=== PATIENT | male | born 1970 | race Caucasian/White ===

== ENCOUNTER 2021-06-09 15:26 | Emergency (ER) | payer OTHER ==
[~2021-06-09] VITALS: Ht 182.9 cm; Wt 78.5 kg
[2021-06-09 15:27] VITALS: BP 125/87
[2021-06-09] MEDS ORDERED: HYDROCODONE/ACETAMINOPHEN 10/325 MG TAB ONE (17:58)
[2021-06-09] MEDS ORDERED: HYDROCODONE/ACETAMINOPHEN 10/325 MG TAB PO ONE (18:00)
[2021-06-09] MEDS ORDERED: ACET1TAB25 PO (18:01)
[2021-06-09] MEDS ORDERED: IBUP-2070 PO (18:01)
== END 2021-06-09 18:15 | disposition home or self-care (01) ==
LOC: EDH 15:26
DX: S22.32XA Fracture of one rib, left side, initial encounter for closed fracture (principal); W01.0XXA Fall on same level from slipping, tripping and stumbling without subsequent striking against object, initial encounter; Y93.89 Activity, other specified; Y92.89 Other specified places as the place of occurrence of the external cause; Y99.8 Other external cause status
CPT/HCPCS: 71046

== ENCOUNTER 2024-10-03 10:21 | Emergency (ER) | payer BC ==
[~2024-10-03] VITALS: Ht 180.3 cm; Wt 95.3 kg
[~2024-10-03 10:21] MED LIST: ACET-2079 PO; IBUP-2070 PO
[2024-10-03 10:43] LABS: APPEARANCE,URINE CLEAR (CLEAR); BILIRUBIN,URINE NEGATIVE (NEGATIVE); COLOR,URINE LIGHT-YELLOW (YELLOW); GLUCOSE, URINE (UA) NEGATIVE (NEGATIVE); KETONES,URINE NEGATIVE (NEGATIVE); LEUKOCYTE ESTERASE ,URINE NEGATIVE Leu/uL (NEGATIVE); NITRATE,URINE NEGATIVE (NEGATIVE); OCCULT BLOOD,URINE NEGATIVE (NEGATIVE); PROTEIN,URINE NEGATIVE (NEGATIVE); UROBILINOGEN,URINE 0.2 mg/dL (0.2-1.0)
[2024-10-03 10:45] LABS: ADD UA MICROSCOPIC NO
[2024-10-03 10:49] LABS: AMPHET/METH SCREEN,URINE NEGATIVE (NEGATIVE); BARBITURATE SCREEN, URINE NEGATIVE (NEGATIVE); BENZODIAZEPINES SCREEN,URINE NEGATIVE (NEGATIVE); CANNABINOID SCREEN,URINE NEGATIVE (NEGATIVE); COCAINE SCREEN,URINE NEGATIVE (NEGATIVE); OPIATE SCREEN,URINE NEGATIVE (NEGATIVE); PHENCYCLIDINE SCREEN,URINE NEGATIVE (NEGATIVE)
[2024-10-03] MEDS: ASPIRIN 81MG CHEW TAB PO STA (10:54)
[2024-10-03] MEDS: NITROGLYCERIN 0.4 MG SL TAB SL PRN (10:55)
[2024-10-03 10:58] LABS: BASOPHILS # (AUTO) 0.06 K/uL (0.00-0.20); BASOPHILS % (AUTO) 1.5 % (0.0-5.0); EOSINOPHILS # (AUTO) 0.09 K/uL (0.00-0.70); EOSINOPHILS % (AUTO) 2.3 % (0.0-8.0); HEMATOCRIT 47.9 % (42-54); IMMATURE GRANULOCYTE ABSOLUTE 0.03 K/uL (0-1); LYMPHOCYTES # (AUTO) 1.6 K/uL (1.0-4.8); LYMPHOCYTES % (AUTO) 41.1 % (21.0-51.0); MEAN CORPUSCULAR HEMOGLOBIN 32.6 pg (27.0-33.0); MEAN CORPUSCULAR HGB CONC 35.7 g/dL (32.0-36.0); MEAN CORPUSCULAR VOLUME 91.4 fL (79-99); MONOCYTES # (AUTO) 0.6 K/uL (0.1-1.0); MONOCYTES % (AUTO) 14.7 % (3.0-13.0); NEUTROPHILS # (AUTO) 1.5 K/uL (1.8-7.7); NEUTROPHILS % (AUTO) 39.6 % (40.0-77.0); PLATELET COUNT (AUTO) 156 K/uL (130-400); RED BLOOD CELL COUNT(AUTO) 5.24 MIL/uL (4.50-6.20); RED CELL DISTRIBUTION WIDTH 12.2 % (11.0-15.5); WHITE BLOOD COUNT (AUTO) 3.9 K/uL (4.8-10.8)
--- NOTE | 2024-10-03 11:00 | EKG ---
[facility] Test Date: 2024-10-03 Test Time: 10:09:55 Pat Name: NOBLE HERNANDEZ Department: ED Room: Gender: M Assistant Corporate Secretary: danitza elias : 1970 Requested By: EDNA MERLOS Order Number: [id number] Reading MD: Cande Mast Measurements Intervals [place] Rate: 96 P: 65 MS: 186 QRS: -12 QRSD: 99 T: 42 QT: 364 QTc: 461 Interpretive Statements Sinus rhythm No previous ECG available for comparison Electronically Signed On 10-05-2024 15:05:23 CDT by Cande Mast Please click the below link to view image of tracing.
--- NOTE | 2024-10-03 11:03 | ERN ---
ED Note History of Present Illness Stated Complaint: CHEST PAIN Chief Complaint: Chest Pain Time Seen by MD: 10:25 Time Seen by Midlevel: 10:28 Dictation: 54-year-old male with a history of asthma and hypertension coming in with complaints of chest pain, short of breath, chest tightness, right upper quadrant pain radiating to the epigastric region, abdominal bloating and vomiting. Patient states he has had the GI symptoms for the last week. Patient states he has not been able to have a regular BM and they are all watery. Patient also admits to daily drinking and smoking. He is he is unable to eat for the last five days, states he tries see anything in the throws up. Denies having any blood in stool or emesis. Allergies: Coded Allergies: No Known Drug Allergies (Unverified Allergy, Unknown, 06/09/21) Home Meds Active Scripts Pantoprazole Sodium (Protonix) 40 Mg Ectab, 1 TAB PO DAILY for 30 Days, #30 TAB 0 Refills Prov:EDNA MERLOS SALVAGER HELPER 10/03/24 Ondansetron (Ondansetron Odt) 4 Mg Tab.rapdis, 4 MG PO Q6HPRN PRN for nausea for 3 Days, #12 TAB 0 Refills Prov:EDNA MERLOS SALVAGER HELPER 10/03/24 Acetaminophen with Codeine (Acetaminophen-Cod #3 Tablet) 1 Each Tablet, 1 EACH PO TID, #15 TAB Prov:VANESSA MACIEL MD 06/09/21 Ibuprofen (Ibuprofen) 600 Mg Tablet, 600 MG PO Q6H PRN for PAIN, #30 TAB Prov:VANESSA MACIEL MD 06/09/21 Past Medical History Past Medical History: Alcoholism, Asthma, Hypertension, Other Additional Past Medical Hx: NOSE SX Surgical History: Other Surgical History Other: NOSE SX Social History: Negative, Lives with family Review of System Dictation Constitutional: Negative for fever,chills, and weight loss Eyes: Negative for injury, pain,redness, and discharge ENT: Negative for injury,pain or swelling Cardiovascular :complaining of chest pain Respiratory: Negative for shortness of breath, cough, and wheezing, Abdomen/GI: Complaining of abdominal pain, bloating, watery stool Back: Negative for injury and pain : Negative for injury, bleeding and discharge MS/Extremity: Negative for injury and deformity Skin: Negative for rash, and discoloration Neuro: Negative for headache, weakness, numbness, tingling, and seizure Psych: Negative for suicide ideation, homicidal ideation, and hallucinations Review of Systems: was completed Initial Vital Sign VS Vital Signs Date Time Temp Pulse Resp B/P (MAP) Pulse Ox O2 Delivery O2 Flow Rate FiO2 10/03/24 10:28 99.0 92 24 137/91 99 Room Air 0 10/03/24 11:06 21 Physical Exam Dictation General: awake, alert, NAD Head/Face: Normocephalic, atraumatic Eyes: PERRL, EOMI, vision at baseline ENT: oral cavity clear, TMs clear, no signs of infection Neck: Trachea midline, supple, no nuchal rigidity Cardiovascular: RRR, normal S1/S2, No MRGs, no JVD Respiratory: CTAB, no respiratory distress, No rales or wheezes Abdomen: Soft, decreased bowel sounds, mild generalized tenderness on palpation, Skin: Warm, dry, normal turgor, no rash MS/Extremity: Pulses equal, no cyanosis, neurovascular intact, FROM Neuro: COAx4, GCS 15, strength 5/5, CN 2-12 intact, normal cerebellar exam, no rmal gait, Psych: Normal behavior, mood, and affect normal Results (Laboratory/Radiology) Laboratory/Radiology Laboratory Tests Test 10/03/24 10:13 10/03/24 10:40 10/03/24 10:46 Urine Color LIGHT-YELLOW (YELLOW) Urine Appearance CLEAR (CLEAR) Urine pH 7.0 (5.0-8.0) Urine Specific [place] 1.008 (1.001-1.031) Urine Protein NEGATIVE mg/dL (NEGATIVE) Urine Glucose (UA) NEGATIVE mg/dL (NEGATIVE) Urine Ketones NEGATIVE mg/dL (NEGATIVE) Urine Occult Blood NEGATIVE (NEGATIVE) Urine Nitrate NEGATIVE (NEGATIVE) Urine Bilirubin NEGATIVE mg/dL (NEGATIVE) Urine Urobilinogen 0.2 mg/dL (0.2-1.0) Urine Leukocyte Esterase NEGATIVE Gloria/uL Urine Opiates Screen NEGATIVE (NEGATIVE) Urine Barbiturates Screen NEGATIVE (NEGATIVE) Urine Phencyclidine Screen NEGATIVE (NEGATIVE) Urine Amphetamines Screen NEGATIVE (NEGATIVE) Urine Benzodiazepines Screen NEGATIVE (NEGATIVE) Urine Cocaine Screen NEGATIVE (NEGATIVE) Urine Marijuana (THC) Screen NEGATIVE (NEGATIVE) White Blood Count 3.9 K/uL (4.8-10.8) L Red Blood Count 5.24 MIL/uL (4.50-6.20) Hemoglobin 17.1 g/dL (14.0-18.0) Hematocrit 47.9 % (42-54) Mean Corpuscular Volume 91.4 fL (79-99) Mean Corpuscular Hemoglobin 32.6 pg (27.0-33.0) Mean Corpuscular Hemoglobin Concent 35.7 g/dL (32.0-36.0) Red Cell Distribution Width 12.2 % (11.0-15.5) Platelet Count 156 K/uL (130-400) Mean Platelet Volume 10.1 fL (7.5-10.5) Immature Granulocyte % (Auto) 0.8 % (0-1) Neutrophils (%) (Auto) 39.6 % (40.0-77.0) L Lymphocytes (%) (Auto) 41.1 % (21.0-51.0) Monocytes (%) (Auto) 14.7 % (3.0-13.0) H Eosinophils (%) (Auto) 2.3 % (0.0-8.0) Basophils (%) (Auto) 1.5 % (0.0-5.0) Neutrophils # (Auto) 1.5 K/uL (1.8-7.7) L Lymphocytes # (Auto) 1.6 K/uL (1.0-4.8) Monocytes # (Auto) 0.6 K/uL (0.1-1.0) Eosinophils # (Auto) 0.09 K/uL (0.00-0.70) Basophils # (Auto) 0.06 K/uL (0.00-0.20) Absolute Immature Granulocyte (auto 0.03 K/uL (0-1) Nucleated Red Blood Cells 0.0 % (0.0-0.19) Sodium Level 138 mmol/L (136-145) Potassium Level 3.3 mmol/L (3.5-5.1) L Chloride Level 98 mmol/L (101-111) L Carbon Dioxide Level 30 mmol/L (21-32) Blood Urea Nitrogen 7 mg/dL (7-18) Creatinine 0.8 mg/dL (0.5-1.3) Glomerular Filtration Rate Calc 105 mL/min (>90) Random Glucose 104 mg/dL (70-105) Total Calcium 8.3 mg/dL (8.5-10.1) L Total Bilirubin 0.9 mg/dL (0.2-1.0) Direct Bilirubin 0.2 mg/dL (0.0-0.3) Aspartate Amino Transf (AST/SGOT) 92 U/L (10-37) H Alanine Aminotransferase (ALT/SGPT) 54 U/L (12-78) Alkaline Phosphatase 92 U/L (50-136) Troponin I High Sensitivity 13 ng/L (4-75) B-Type Natriuretic Peptide 8 pg/mL (0-100) Total Protein 8.1 g/dL (6.0-8.3) Albumin 3.9 g/dL (3.5-5.0) Lipase 32 U/L (16-77) Serum Alcohol 335 mg/dL (0-10) H Labs Reviewed?: Yes EKG Comment: EKGs done at 10:09 a.m., sinus rhythm at a rate of 96. No STEMI interpreted by ER MD. X-RAY Comment: [place] [id number] [id number] IMAGING REPORT Signed PATIENT: NOBLE HERNANDEZ MR#: [id number] : 1970 SEX: M AGE: 54 LOCATION: [facility] ORDER 1026 STATUS: REG ER REPORT#: [id number] SERVICE 1025 REASON: cp ORDERING PHYSICIAN: EDNA MERLOS NP PROCEDURE: CXR1VW - CHEST 1VW CHEST 1VW HISTORY: Chest pain COMPARISON: 06/09/2021 FINDINGS: A frontal projection of the chest was obtained. No acute pulmonary infiltrates is seen. The heart is borderline enlarged. Degenerative changes are seen. No evidence of aortic calcification is seen. IMPRESSION: 1. No acute pulmonary infiltrate is seen. DICTATED BY: CHATO JACOB MD DATE: 10/03/24 1146 ELECTRONICALLY SIGNED BY: CHATO JACOB MD DATE: 10/03/[address] Scan Comment: [place] [id number] [id number] IMAGING REPORT Signed PATIENT: NOBLE HERNANDEZ MR#: [id number] : 1970 SEX: M AGE: 54 LOCATION: [facility] ORDER 06 STATUS: REG ER REPORT#: [id number] SERVICE 05 REASON: n/v, bloating, r/o sbo ORDERING PHYSICIAN: EDNA MERLOS NP PROCEDURE: ABD PEL W - CT ABDOMEN/PELVIS W/CONTRAST CT ABDOMEN/PELVIS W/CONTRAST HISTORY: Nausea and vomiting COMPARISON: None TECHNIQUE: Multiple sequential axial images of the abdomen and pelvis were obtained from the dome of the diaphragm through symphysis pubis. Patient was not given contrast through intravenous route. Oral contrast was not given. FINDINGS: No pleural effusion is seen bilaterally. There is no evidence of parenchymal disease or pulmonary nodule of the visualized lower lungs. Degenerative changes of the thoracolumbar spine are present. The heart is not enlarged. Liver measures 18 cm. The liver, spleen, adrenal glands and pancreas are unremarkable. There is no evidence of hydronephrosis bilaterally. No evidence of renal stone is seen. Fecal material is seen in the colon. There are normal size retroperitoneal and mesenteric lymph nodes. No ascites is seen. Atherosclerotic changes are present. Pelvic sidewalls are symmetric bilaterally. Bladder is well distended without wall thickening. IMPRESSION: 1. No acute findings. ED Course ED Course Orders Procedure Category Date Status Time Cbc With Differential LAB 10/03/24 Complete 10:25 Basic Metabolic Panel LAB 10/03/24 Complete 10:25 B-Type Natriuretic LAB 10/03/24 Complete Peptide 10:25 Troponin I High LAB 10/03/24 Complete Sensitivity 10:25 12 Lead Ekg Tracing- EKG 10/03/24 Complete Technical 10:25 Chest 1vw RAD 10/03/24 Resulted 10:25 Urinalysis Profile LAB 10/03/24 Complete Catherized 10:25 Drug Screen Urine LAB 10/03/24 Complete 10:25 Nitroglycerin 0.4mg PHA 10/03/24 Complete Sl Tab (Nitrostat) 10:30 Aspirin 81mg Chew Tab PHA 10/03/24 Complete (Aspirin 81mg Chew 10:26 Alcohol, Blood LAB 10/03/24 Complete 10:44 Morphine 2mg Syg PHA 10/03/24 Complete (Morphine 2mg Syg) 11:06 Ct Abdomen/Pelvis CT 10/03/24 Resulted W/Contrast 11:06 Ondansetron 4mg Inj PHA 10/03/24 Complete (Zofran 4mg Inj) 11:06 Iohexol (Omnipaque) PHA 10/03/24 Complete 12:25 Lipase LAB 10/03/24 Complete 13:48 Hepatic Function Panel LAB 10/03/24 Complete 13:48 Potassium Chloride PHA 10/03/24 Complete 20meq Er (K-Dur/Klor- 14:19 Current Medications Medications (Trade) Dose Ordered Sig/Patricia Route PRN Reason Start Time Stop Time Status Last Admin Dose Admin Aspirin (Aspirin 81mg Chew Tab) 324 mg ONCE STAT PO 10/03/24 10:26 10/03/24 10:27 DC 10/03/24 10:54 Iohexol (Omnipaque) 75 ml STK-MED ONCE IV 10/03/24 12:25 10/03/24 12:25 DC Morphine Sulfate (morPHINE 2MG SYG) 2 mg ONCE STAT IVP 10/03/24 11:06 10/03/24 11:08 DC 10/03/24 12:26 Nitroglycerin (Nitrostat) 0.4 mg AD PRN SL CHEST PAIN 10/03/24 10:30 10/03/24 14:45 DC 10/03/24 10:55 Ondansetron HCl (zoFRAN 4MG INJ) 4 mg ONCE STAT IVP 10/03/24 11:06 10/03/24 11:08 DC 10/03/24 12:26 Potassium Chloride (K-Dur/Klor-Con 20meq) 40 meq ONCE ONCE PO 10/03/24 14:19 10/03/24 14:21 DC 10/03/24 14:30 Vital Signs Date Time Temp Pulse Resp B/P (MAP) Pulse Ox O2 Delivery O2 Flow Rate FiO2 10/03/24 12:03 98.4 85 12 112/84 99 Room Air* 0 21 10/03/24 11:06 98.4 98 18 126/90 95 Room Air* 0 10/03/24 10:28 99.0 92 24 137/91 99 Room Air 0 HEART Score Response (Comments) Value History: Moderate suspicion (+1) 1 EKG: Normal 0 Age: 45-65yrs (+1) 1 Risk Factors: 1-2 risk factors (+1) 1 Initial Troponin: Normal limit (0) 0 Total 3 Medical Decision Making MDM MDM: 54-year-old male with a history of asthma and hypertension coming in with complaints of chest pain, short of breath, chest tightness, right upper quadrant pain radiating to the epigastric region, abdominal bloating and vomiting. Patient states he has had the GI symptoms for the last week. Patient states he has not been able to have a regular BM and they are all watery. Patient also admits to daily drinking and smoking. He is he is unable to eat for the last five days, states he tries see anything in the throws up. Denies having any blood in stool or emesis. Patient has not had any episodes of vomiting or diarrhea in the emergency room. Patient is awake alert and oriented x4. CBC shows leukocytopenia, no anemia, no thrombocytopenia. Chemistry shows mild hypokalemia, normal kidney function. T bili and lipase within normal range. Mild elevation of AST at 92. Alcohol level is 343. After med in the emergency room patient states feels better. On reassessment patient was found sleeping. Educated him in is spouse to stop drinking slowly, not cold turkey, educated to follow up with PCP for more help on withdrawal from alcohol and smoking. CIWA is 1. Differential diagnosis: Alcohol withdrawal, pancreatitis, dehydration Rationale: Tests considered and ordered secondary to shared decision making include: Previous outside records reviewed: Old ER visits. Risk of complication and/or morbidity or mortality of patient management: None Medications-Per medication reconciliation Need for hospitalization: Patient does not meet criteria for hospitalization. Need for emergency major/minor surgery: No There are no social concerns with this patient. Prescription drug management Prescriptions will include symptomatic care Patient's prior external medical records from other ER visits were reviewed by me as indicated. Prior testing and results from previous visits were reviewed. Prior tests were taken into account with medical decision making and resource utilization, independent historian/historians were used to obtain complete medical history. I independently interpreted the test that were performed, results were reviewed by me and considered findings on radiology if ordered. Medical management and examination interpretation discussions were had by me with other qualified healthcare professionals as indicated for the patient's care. DX & DISP Disposition: Discharge Departure Impression: Primary Impression: Hypokalemia Additional Impression: EtOH dependence Condition: Stable Scripts Pantoprazole Sodium (Protonix) 40 Mg Ectab 1 TAB PO DAILY for 30 Days, #30 TAB 0 Refills Prov: EDNA MERLOS NP 10/03/24 Ondansetron (Ondansetron Odt) 4 Mg Tab.rapdis 4 MG PO Q6HPRN PRN for nausea for 3 Days, #12 TAB 0 Refills Prov: EDNA MERLOS NP 10/03/24 Additional Instructions: Please stop drinking, slowly. Did not stop drinking for one day to the next. Follow up with your primary doctor, return for any worsening symptoms. Referrals: FER LEDESMA MD (PCP) Time of Disposition: 14:21 I have reviewed the case, and I agree with, Diagnosis and Plan I performed a substantive portion of the visit. I have reviewed and personally made and approve the management plan that is documented in the notes by myself with VENESSA/resident. I acknowledged full responsibility for the patient's manage ment plan. EDNA MERLOS NP Oct 03, 2024 11:03 OZIEL TORRES DO Oct 03, 2024 17:35
[2024-10-03 11:04] LABS: CREATININE 0.8 mg/dL (0.5-1.3); POTASSIUM 3.3 mmol/L (3.5-5.1)
[2024-10-03 11:33] LABS: B-TYPE NATRIURETIC PEPTIDE 8 pg/mL (0-100)
--- NOTE | 2024-10-03 11:50 | HMCIMG ---
CHEST 1VW HISTORY: Chest pain COMPARISON: 06/09/2021 FINDINGS: A frontal projection of the chest was obtained. No acute pulmonary infiltrates is seen. The heart is borderline enlarged. Degenerative changes are seen. No evidence of aortic calcification is seen. IMPRESSION: 1. No acute pulmonary infiltrate is seen.
[2024-10-03 12:03] VITALS: BP 112/84; PULSE 85; RESP 12; TEMP 98.4; O2SAT 99
[2024-10-03] MEDS ORDERED: IOHEXOL-350 75 ML VIAL IV ONE (12:25)
[2024-10-03] MEDS: morPHINE 2 MG SYG IVP STA (12:26)
[2024-10-03] MEDS: ondanSETRON 4MG INJ IVP STA (12:26)
--- NOTE | 2024-10-03 13:43 | HMCIMG ---
CT ABDOMEN/PELVIS W/CONTRAST HISTORY: Nausea and vomiting COMPARISON: None TECHNIQUE: Multiple sequential axial images of the abdomen and pelvis were obtained from the dome of the diaphragm through symphysis pubis. Patient was not given contrast through intravenous route. Oral contrast was not given. FINDINGS: No pleural effusion is seen bilaterally. There is no evidence of parenchymal disease or pulmonary nodule of the visualized lower lungs. Degenerative changes of the thoracolumbar spine are present. The heart is not enlarged. Liver measures 18 cm. The liver, spleen, adrenal glands and pancreas are unremarkable. There is no evidence of hydronephrosis bilaterally. No evidence of renal stone is seen. Fecal material is seen in the colon. There are normal size retroperitoneal and mesenteric lymph nodes. No ascites is seen. Atherosclerotic changes are present. Pelvic sidewalls are symmetric bilaterally. Bladder is well distended without wall thickening. IMPRESSION: 1. No acute findings. CT was performed with one or more following dose reduction techniques: automated exposure control, adjustment of the mA and kv according to patient's size, or use of a iterative reconstruction technique.
[2024-10-03 14:15] LABS: ALBUMIN 3.9 g/dL (3.5-5.0); BILIRUBIN,DIRECT 0.2 mg/dL (0.0-0.3); BILIRUBIN,TOTAL 0.9 mg/dL (0.2-1.0); TOTAL PROTEIN, SERUM 8.1 g/dL (6.0-8.3)
[2024-10-03] MEDS ORDERED: ONDA-243 PO (14:22)
[2024-10-03] MEDS ORDERED: PANT40TA55 PO (14:22)
[2024-10-03] MEDS: PoTASSium chloRIDE 20MEQ ER 20 MEQ ERTAB PO ONE (14:30)
== END 2024-10-03 14:45 | disposition home or self-care (01) ==
LOC: EDH 10:40
DX: E87.6 Hypokalemia (principal); I10 Essential (primary) hypertension; F10.20 Alcohol dependence, uncomplicated; J45.909 Unspecified asthma, uncomplicated; Z79.899 Other long term (current) drug therapy; Y90.8 Blood alcohol level of 240 mg/100 ml or more
CPT/HCPCS: 99284; 74177; 96374; 71045; 96375; 80076; 84484; 80048; 83880; 80305; 83690; 85025; 81003; 36415; 93005; J2270; J2405; Q9967